=== PATIENT | male | born 1965 | race Caucasian/White ===

== ENCOUNTER 2018-03-09 15:06 | Emergency (ER) | payer OTHER ==
[~2018-03-09] VITALS: Ht 177.8 cm; Wt 90.7 kg
[2018-03-09 15:06] VITALS: Ht 177.8 cm; Wt 90.7 kg
== END 2018-03-09 20:19 | disposition expired ==
LOC: ED 15:06 → EDBD 15:06 → ED 20:19
DX: I46.9 Cardiac arrest, cause unspecified (principal); E11.9 Type 2 diabetes mellitus without complications; E78.00 Pure hypercholesterolemia, unspecified